=== PATIENT | male | born 1965 | race Caucasian/White ===

== ENCOUNTER 2017-03-24 09:08 | Emergency (ER) | payer BC ==
[2017-03-24 09:21] VITALS: RESP 16; O2SAT 98
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
[2017-03-24] MEDS ORDERED: OXYCODONE/APAP 5/325 TAB PO ONE (09:46)
[2017-03-24] MEDS ORDERED: LET GEL TOPICAL 1 EA SYR TP ONE (09:46)
[2017-03-24 11:24] VITALS: BP 117/87; PULSE 76; TEMP 98.2
== END 2017-03-24 11:24 | disposition home or self-care (01) ==
DX: S42.021A Displaced fracture of shaft of right clavicle, initial encounter for closed fracture (principal); V18.0XXA Pedal cycle driver injured in noncollision transport accident in nontraffic accident, initial encounter; Y92.89 Other specified places as the place of occurrence of the external cause; Y99.8 Other external cause status; Y93.55 Activity, bike riding